=== PATIENT | female | born 1980 | race African-American/Black ===

== ENCOUNTER 2021-01-20 01:47 | Emergency (ER) | payer MEDICAID, OTHER ==
[~2021-01-20] VITALS: Ht 152.4 cm; Wt 51.4 kg
[2021-01-20] MEDS ORDERED: NEOMY/BACITR/POLYMYXIN OINT PACKET. TP ONE (02:15)
[2021-01-20] MEDS ORDERED: LIDOCAINE 2%/EPI 1:100,000 20 ML VIAL. INJ ONE (02:30)
--- NOTE | 2021-01-20 02:33 | PHYS DOC ---
Past Medical History Past Medical History: Hypertension Past Surgical History: Tonsillectomy, Tubal ligation, Other Additional Past Surgical Histo: Hernia Smoking Status: Current Every Day Smoker Alcohol Use: Occasionally Drug Use: None General Adult EDM: Chief Complaint: MECHANICAL FALL HPI: HPI: Patient is a 40 year old female who presents with fall and laceration. The patient slipped and fell in her kitchen tonight and hit the back of her head on the tile floor. She does not think she lost consciousness and remembers the event. She notes a small laceration on the back of her head which was bleeding heavily and she is currently compressing with a towel. He denies any cervical spine pain, any vision changes or loss of balance, headache or any other neurological symptoms. She says she is not on any blood thinners. Review of Systems: Review of Systems: Constitutional: Denies fever or chills Eyes: Denies redness or eye pain HENT: Denies nasal congestion or sore throat Respiratory: Denies cough or shortness of breath Cardiovascular: Denies chest pain or palpitations GI: Denies abdominal pain, nausea, or vomiting : Denies dysuria or hematuria Musculoskeletal: Denies back pain or joint pain. Notes pain on the back of her head Integument: Denies rash or skin lesions Neurologic: Denies headache, focal weakness or sensory changes Complete systems were reviewed and found to be within normal limits, except as documented in this note. Current Medications: Current Medications Medications (Trade) Dose Ordered Sig/[place] Start Time Stop Time Status Last Admin Dose Admin Lidocaine/ Epinephrine (LIDOCAINE 2%-EPI 1:100,000 multi-dose) 20 ml 1X ONCE 01/20/21 02:30 01/20/21 02:31 DC Neomycin/ Polymyxin/ Bacitracin (Triple Antibiotic Ointment) 1 pkt 1X ONCE 01/20/21 02:15 01/20/21 02:16 DC 01/20/21 02:22 1 PKT Allergies: Allergies: Allergies Coded Allergies Type Severity Reaction Last Updated Verified No Known Drug Allergies 02/28/16 No Physical Exam: PE: Constitutional: Well developed, well nourished, no acute distress, non-toxic appearance HENT: Normocephalic, atraumatic Eyes: PERRL, EOMI, conjunctiva normal, no discharge Neck: Normal range of motion, no tenderness, supple Lungs & Thorax: No respiratory distress, equal chest rise and fall Abdomen: Soft, no tenderness Skin: Warm, dry, no erythema, no rash. Small 1.5 to 2 cm laceration on the back of her head. Back: No tenderness, no CVA tenderness Extremities: No tenderness, ROM intact, no edema Neurologic: Alert and oriented X 3, normal motor function, normal sensory function, no focal deficits noted Psychologic: Affect normal, judgment normal Current Patient Data: Vital Signs: Vital Signs Date Time Temp Pulse Resp B/P (MAP) Pulse Ox O2 Delivery O2 Flow Rate FiO2 01/20/21 01:57 98.1 70 18 143/80 (101) 100 Room Air 98.1 EKG: EKG: [] Radiology/Procedures: Radiology/Procedures: [] Course & Med Decision Making: Course & Med Decision Making Patient presented with fall and small laceration of the back of her head. She denies any neurologic deficits or loss of consciousness. She denies any cervical spine or other musculoskeletal symptoms. The laceration was cleaned and repaired with aubrie. Patient stable for discharge with outpatient follow-up with PCP. Discussed findings and plan with patient, who acknowledges understanding and agreement. [] Dragon Disclaimer: Dragon Disclaimer: This electronic medical record was generated, in whole or in part, using a voice recognition dictation system. Laceration/Wound Repair Laceration/Wound Repair : Wound Location: head Wound's Depth, Shape: superficial, linear Wound Length (cm): 2 Wound Explored: clean Betadine Prep?: Yes Anesthesia: Lidocaine w/ Epi Progress Verbal consent obtained. Time out performed. Hand hygiene utilized. Wound raina aned with ChloraPrep. Anesthesia obtained via a 25-gauge hypodermic needle with (4) mL's of lidocaine 2% with epinephrine. Copious irrigation performed. Wound well approximated with aubrie. Patient tolerated procedure well and without difficulty. Empiric antibiotic ointment applied prior to sterile dressing. Departure Departure Impression: Primary Impression: Occipital scalp laceration Qualified Codes: S01.01XA - Laceration without foreign body of scalp, initial encounter Disposition: HOME SELF CARE/HOMELESS Condition: STABLE Referrals: NO PCP (PCP) Patient Instructions: Staple Wound Closure, [id number] Additional Instructions: Do not soak your wound. You may shower. Clean wound daily with a gentle soap/shampoo and running water. Use over the counter antibiotic ointment with each dressing change. [place] need to be removed in 7-10 days. Present to your family doctor or local urgent care for removal. You may also present to the ED but it will be an additional visit/charge. Use over the counter Tylenol and/or Ibuprofen for pain or discomfort. SONIA JOHNSTON DO Jan 20, 2021 02:33
[2021-01-20 02:47] VITALS: BP 168/77
== END 2021-01-20 02:47 | disposition home or self-care (01) ==
LOC: ER 01:47
DX: S01.01XA Laceration without foreign body of scalp, initial encounter (principal); I10 Essential (primary) hypertension; F17.200 Nicotine dependence, unspecified, uncomplicated; Z90.89 Acquired absence of other organs; Z98.51 Tubal ligation status; Z98.890 Other specified postprocedural states; W01.0XXA Fall on same level from slipping, tripping and stumbling without subsequent striking against object, initial encounter; Y93.89 Activity, other specified; Y92.89 Other specified places as the place of occurrence of the external cause; Y99.8 Other external cause status
CPT/HCPCS: 12001; 99284; J3490